=== PATIENT | female | born 1975 | race Caucasian/White ===

== ENCOUNTER 2025-05-17 07:39 | Outpatient (OUT) | payer BC, SELFPAY ==
--- OUTSIDE RECORDS SUMMARY | 2025-05-17 07:44 | XMS_ITS | Clinical Summary ---
Author Organization [facility] Address [address], [address] [place] [address] Care Team Providers Care Aco Coordinator Name Role Phone SinaAnayeliHeather Henrique MODEL MAKER APPRENTICE - STRING CUTTER Primary Care Pro vider Allergies Active AllergyReactionsCriticalityNoted DateCommentsBee BdvctBjaizfx75/19/2016 Numbness, palpitations, confusion Methotrexate And TrimetrexateOther (See Comments)06/20/2016 MENTAL CONFUSION Medications MedicationSigDispense QuantityRefillsLast FilledStart DateEnd DateStatus Multiple Vitamins-Minerals (MULTIVITAMIN ADULT PO) Take by mouth dailyActive fluticasone (FLONASE) 50 MCG/ACT nasal spray 2 sprays by Nasal route daily as needed for RhinitisActive gabapentin (NEURONTIN) 300 MG capsule Take 300 mg by mouth dailyActive amLODIPine (NORVASC) 2.5 MG tablet Take 2.5 mg by mouth dailyActive metoprolol succinate (TOPROL XL) 25 MG extended release tablet Take 25 mg by mouth 2 times dailyActive simvastatin (ZOCOR) 40 MG tablet Take 40 mg by mouth dailyActive omeprazole (PRILOSEC) 20 MG delayed release capsule Take 20 mg by mouth DailyActive metFORMIN (GLUCOPHAGE) 1000 MG tablet Take 1,000 mg by mouth 2 times daily (with meals)Active FLUoxetine HCl (PROZAC PO) Take 1 tablet by mouth dailyActive albuterol sulfate HFA 108 (90 BASE) MCG/ACT inhaler Inhale 2 puffs into the lungs every 6 hours as needed for WheezingActive Dulaglutide (TRULICITY) 0.75 MG/0.5ML SOPN Inject 0.5 mLs into the skin once a week SundayActive nabumetone (RELAFEN) 750 MG tablet Take 750 mg by mouth 2 times dailyActive EPINEPHrine HCl, Anaphylaxis, (EPIPEN 2-TOBI IM) Inject into the muscleActive acetaminophen (TYLENOL) 325 MG tablet Take 2 tablets by mouth every 4 hours as needed for Pain 120 tablet Active rivaroxaban (XARELTO) 10 MG TABS tablet Take 1 tablet by mouth daily 12 tablet 02/28/2017Active topiramate (TOPIRAGEN) 50 MG tablet Take 50 mg by mouth dailyActive lisinopril (PRINIVIL;ZESTRIL) 5 MG tablet Take 5 mg by mouth dailyActive alogliptin (NESINA) 25 MG TABS tablet Take 25 mg by mouth dailyActive adalimumab (HUMIRA) 40 MG/0.8ML injection Inject 40 mg into the skin every 14 daysActive metoprolol tartrate (LOPRESSOR) 25 MG tablet Take 25 mg by mouth dailyActive SUMAtriptan (IMITREX) 100 MG tablet Take 100 mg by mouth every 2 hours as needed for MigraineActive Active Problems ProblemNoted DateDiagnosed DateChange in bowel ixejrwtm43/01/2019Constipation 09/07/2018Morbid hfjtdfj4502/28/2017Status post right partial knee replacement 02/27/20171898Ghprrqys35/01/2013 Overview (02/27/2017): States that 2013 had a possible seizure, she states she had a full work up and it was not felt to be a seizure, she was never placed on halfway medications Rheumatoid arthritisNeuropathyHypertensionFibromyalgiaDiabetes mellitus DepressionChronic back painAsthma Immunizations ImmunizationAdministration DatesNext DuePneumococcal, PCV-13, PREVNAR 13, (age 6w+), IM, 0.5mL03/02/2017 Social History Tobacco UseTypesPacks/DayYears UsedDateSmoking Tobacco: Some DaysCigarettes0.325 Smokeless Tobacco: Never Comments:pt states she smoke s a few cigarettes couple times a week Alcohol UseStandard Drinks/WeekCommentsYes0 (1 standard drink = 0.6 oz pure alcohol)OCCCommentsNoSex and Gender InformationValueDate RecordedSex Assigned at BirthNot on fileLegal HpjZrybld16/10/2013 4:44 PM ESTGender Identity Not on fileSexual OrientationNot on file Last Filed Vital Signs Vital SignReadingTime TakenCommentsBlood Jxyntsdt74/69009/26/2018 12:30 PM EDT Wexei451209/26/2018 12:30 PM EDPRdfgosoywin25.4 ??C (97.5 ??F)09/26/2018 10:30 AM EDTRespiratory Yelv053009/26/2018 12:30 PM EDTOxygen Njvlgjtucs31%09/26/2018 12:24 PM EDTInhaled Oxygen Concentration--Vgdqft194.6 kg (235 lb)09/26/2018 10:30 AM CWOOesugh874.3 cm (5' 9 )09/26/2018 10:30 AM EDTBody Mass Index34.7009/26/2018 10:30 AM EDT Plan of Treatment Not on file Medical Devices ImplantedTypeAreaManufacturerDevice IdentifierShelf Expiration DateModel / Serial / LotCement Palacos R + G Sing Dose 40gr Implanted:Qty: 1 on 02/27/2017 [facility]ementRight: KneeZIMMER INC-PMM108/08/[id number] / / [id number] Knee Patella All Poly Persona Implanted:Qty: 1 on 02/27/2017 [facility]: [employer]-PMM12/07/[id number] / / [id number] Knee Fem Comp Cmntd Sz3 Rt Implanted:Qty: 1 on 02/27/2017 by [facility]: [employer]-[id number] / / [id number] Insurance * Guarantor: Dinh Paris TypeRelation to PatientDate of BirthPhoneBilling AddressPersonal/AmnyeeVlzr74/10/1976 [address] [place] [phone] Advance Directives * Full Code (Latest Code Status on File) Date ActivatedDate InactivatedComments02/27/2017 10:48 AM03/03/2017 7:41 PM Care Teams Team MemberRelationshipSpecialtyStart DateEnd Date Heather Andino, ЕЛЕНА - STRING CUTTER [address] [facility] [place] [address] PCP - GeneralNurse Aetxkikdrihy52/19/20
--- OUTSIDE RECORDS SUMMARY | 2025-05-17 07:44 | XMS_ITS | Encounter Summary ---
Author Organization [facility] Address [address] [place] [id number] Care Team Providers Care Bank Appraiser Name Role Phone Kavita Enriquez MD Primary Care Provider [phone] Source Comments In the event this information is protected by the Federal Confidentiality of Alcohol and Drug AbusePatient Records regulations: The Federal rules restrict any use of the information to criminally investigate or prosecute any alcohol or drug abuse patient.[facility] Reason for Visit * ReasonOnset DateCommentsRefill Mdzkydv1904/11/2025 Encounter Details DateTypeDepartmentCare Team (Latest Contact Info)Tjthffoukzs13/03/2025Refill Rheumatology [address] [place], [place] [id number] [place] [address] [place], [place] [phone] Refill Request Social History Tobacco UseTypesPacks/DayYears UsedDateSmoking Tobacco: Light SmokerCigarettes1 25Started: 12/08/1988; Last attempted to quit: 12/08/2013Smokeless Tobacco: Never Comments:use vape Alcohol UseStandard Drinks/WeekCommentsYes0 (1 standard drink = 0.6 oz pure alcohol)socialPHQ-2AnswerDate RecordedPHQ-2 mstwp6855Area Deprivation IndexAnswerDate RecordedNational Score (1-100), lower number is lower risk79 12/02/2022State Score (1-10), lower number is lower fuzj776ata from: https://www.neighborhoodatlas.[facility]/. Last address used for sai[address]gwdt[address] [address]/02/2022CommentsNoSex and Gender InformationValueDate RecordedSex Assigned at TsxmoKaxpru31/01/2021 1:42 PM EDT Legal MzgZxrzns51/10/2014 5:25 PM ESTGender AfbhiwdtRsdoae35/01/2021 1:42 PM EDT Sexual ZwrgehbdojwQqiriexl83/01/2021 1:42 PM EDTdocumented as of this encounter Functional Status * Are you deaf or do you have serious difficulty hearing?AnswerDate of DfqdekactwPbxawgVl71/04/2015 4:39 PM Padma Anderson LPN * Are you blind or do you have serious difficulty seeing, even when wearing glasses?AnswerDate of PlyfpecfauZnfkzsWq10/04/2015 4:39 PM Padma Anderson LPN * Do you have serious difficulty walking or climbing stairs?AnswerDate of MuhezsskkhDikxbiXep25/04/2015 4:39 PM Padma Anderson LPN * Do you have difficulty dressing or bathing?AnswerDate of AssessmentAuthorNo 09/10/2014 4:39 PM Padma Anderson LPN * Because of a physical, mental, or emotional condition, do you have difficulty doing errands alone such as visiting a doctor's office or shopping?AnswerDate of PmgonjwnjcMhrnfbSvw06/04/2015 4:39 PM Padma Anderson LPN documented as of this encounter Mental Status * Because of a physical, mental, or emotional condition, do you have serious difficulty concentrating, remembering, or making decisions?AnswerEntry Date SmmxduQy53/04/2015 4:39 PM Padma Anderson LPN documented in this encounter Miscellaneous Notes * Telephone Encounter - Lita Chicas LPN - 05/12/2025 2:38 PM EST Faxed confirmation and new order for [facility] sent to scanning . * Telephone Encounter - Lita Chicas LPN - 04/11/2025 11:46 AM EDT Received refill request via fax from [employer] - [facility] . Completed form and placed on desk for Dr. Ennis review and signature. Please fax to [employer] at [phone]. documented in this encounter Plan of Treatment Not on file documented as of this encounter Visit Diagnoses Not on filedocumented in this encounter Care Teams Team MemberRelationshipSpecialtyStart DateEnd Kavita Enriquez MD [address] [place] [id number] PCP - GeneralFamily Nawfvzlo44/23/24documented as of this encounter
--- OUTSIDE RECORDS SUMMARY | 2025-05-17 07:44 | XMS_ITS | Clinical Summary ---
Author Organization [facility] Address [address] [place], [place] [address] Care Team Providers Care Research And Development Researcher Name Role Phone Kavita Enriquez MD Primary Care Provider [phone] Allergies Active AllergyReactionsCriticalityNoted DateCommentsBee Venom Protein (Honey Bee)Cppshpl8406/27/20161720ChlgtmymWwmunihujpt65/06/2022 Given in ambulance: systolic BP dropped to 70 MethotrexateMental Status Potwua0702/17/2015 Fogginess,forgetful GabapentinOther: See Gzmnjynf92/12/2016 Wt gain Venom-Honey VycWzbniqw76/19/2016 Numbness, palpitations, confusion Medications MedicationSigDispense QuantityRefillsLast FilledStart DateEnd DateStatus Cholecalciferol, Vitamin D3, 1,000 unit cap Take 1 capsule by mouth once daily. 30 capsule ctive metFORMIN (GLUCOPHAGE) 1,000 mg tablet Take 1,000 mg by mouth twice daily with meals.Active DOCUSATE CALCIUM (STOOL SOFTENER ORAL) Take by mouth once daily.Active albuterol HFA (PROVENTIL HFA, VENTOLIN HFA) 90 mcg/actuation inhaler Inhale 2 Puffs as instructed every 6 hours as needed.Active EPINEPHrine (EPIPEN) 0.3 mg/0.3 mL auto-injector Inject 0.3 mg intramuscularly as needed.Active fluticasone (FLONASE) 50 mcg/actuation nasal spray Use 1 [place] in each nostril once daily.Active ergocalciferol, vitamin D2, (VITAMIN D) 50,000 unit capsule Indications:Vitamin D deficiencyTake 1 capsule by mouth once each week. 16 capsule 10/10/2018Active cetirizine (ZYRTEC) 10 mg tablet Take 10 mg by mouth.05/06/2020Active FLUoxetine (PROZAC) 20 mg capsule Take 20 mg by mouth once daily.2Active OZEMPIC 0.25 mg or 0.5 mg (2 mg/3 mL) pen INJECT 0.5MG'S UNDER THE SKIN ONCE TVTJAA9405/31/2024ctive OZEMPIC 1 mg/dose (4 mg/3 mL) pen INJECT 1 MG (0.75 ML) SUBCUTANEOUSLY EVERY WEEK FOR 84 DAYS06/30/2024ctive rosuvastatin (CRESTOR) 10 mg tablet Take 10 mg by mouth once daily.Active lidocaine (LIDODERM) 5 % Apply 1 Patch as directed every 24 hours.3Active leflunomide (ARAVA) 20 mg tablet Indications:Seropositive rheumatoid arthritis (HCC),Medication monitoring encounterTake 1 tablet by mouth once daily. Hold if you have infection or fevers 100.4 F or higher. May resume once infection resolved. 30 tablet 5Active abatacept (ORENCIA) 125 mg/mL injection Indications:Seropositive rheumatoid arthritis (HCC)Inject 1 mL subcutaneously one time a week. Hold if you have infection or fevers 100.4 F or higher.May resume once infection resolved. 12 mL 5Active naproxen (NAPROSYN) 500 mg tablet TAKE 1 TABLET BY MOUTH TWO TIMES A DAY NEEDED. DO NOT TAKE ANTI-INFLAMMATORY ARTHRITIS MEDICATION (EG. NSAIDS SUCH ALEVE, ADVIL, IBUPROFEN, MOTRIN ETC) WHILE ON NAPROXEN. 180 tablet 5Active naproxen (NAPROSYN) 500 mg tablet TAKE 1 TABLET BY MOUTH TWO TIMES A DAY NEEDED. DO NOT TAKE ANTI-INFLAMMATORY ARTHRITIS MEDICATION (EG. NSAIDS SUCH ALEVE, ADVIL, IBUPROFEN, MOTRIN ETC) WHILE ON NAPROXEN. 180 tablet Discontinued Active Problems ProblemNoted DateDiagnosed DatePatellofemoral pain syndrome of left knee 10/02/2018Degeneration of lumbar intervertebral disc07/15/2015Seropositive rheumatoid cftujwqjh48/20/9627Lxfgjhefmoup24/20/2015Type II diabetes mellitus 07/29/2014 Encounters DateTypeDepartmentCare YztjWqsravzpcsi51/22/2025Refill Rheumatology [id number] [place] [address], [place] [address] Heather Ennis MD Refill Udnrrgf8504/13/2025Refill Rheumatology [address] [place] [address], [place] [address] Heather Ennis MD Refill Azdjlck1004/11/2025Refill Rheumatology [address] [place] [address], [place] [address] Heather Ennis MD Refill Vorxqvs4404/03/2025Refill Rheumatology [address] [place] [address], [place] [address] Heather Ennis MD Refill Zoncfvl7003/31/20251528Uxlxug30/28/2025Refill Rheumatology [address] [place] [address], [place] [address] Heather Ennis MD Refill Tcnbmyw4802/19/2025Refill Rheumatology [address] [place] [address], [place] [address] Heather Ennis MD Refill Requestfrom Last 3 Months Immunizations ImmunizationAdministration DatesNext Dueinfluenza (IIV4) vaccine, age 6 mo - 64 yr, quadrivalent (AFLURIA, FLULAVAL, FLUZONE)05/14/2019,03/28/2017influenza (IIV4) vaccine, age 6 mo - 64 yr, quadrivalent, PF (AFLURIA, FLUARIX, FLULAVAL, FLUZONE)07/20/2021,04/04/2018 Family History Medical HistoryRelationCommentsHeartBrotherRelationStatusCommentsBrotherDeceased Social History Tobacco UseTypesPacks/DayYears UsedDateSmoking Tobacco: Light SmokerCigarettes1 25Started: 12/08/1988; Last attempted to quit: 12/08/2013Smokeless Tobacco: Never Tobacco Cessation:Ready to Q uit: Not Asked; Counseling Given: Not Answered Comments:use vape Alcohol UseStandard Drinks/WeekCommentsYes0 (1 standard drink = 0.6 oz pure alcohol)socialPHQ-2AnswerDate RecordedPHQ-2 pskkt4025Area Deprivation IndexAnswerDate RecordedNational Score (1-100), lower number is lower risk79 12/02/2022State Score (1-10), lower number is lower duys139ata from: https://www.neighborhoodatlas.medicine.[facility].edu/. Last address used for utfmxtskisj[address] [address]/02/[address]22CommentsNoSex and Gender InformationValueDate RecordedSex Assigned at DeznuWjwcdu82/01/2021 1:42 PM EDT Legal OhdOgoako61/10/2014 5:25 PM ESTGender SzjmssvtTecckg22/01/2021 1:42 PM EDT Sexual RlvhqswlrewJoswiikx72/01/2021 1:42 PM EDT Last Filed Vital Signs Vital SignReadingTime TakenCommentsBlood Futrmyki413/70010/25/2024 11:38 AM EDT Emgof880410/25/2024 11:38 AM LRLJxqorlezbsc21.7 ??C (98.1 ??F)05/01/2024 1:02 PM EDTRespiratory Pgmd648707/22/2024 9:14 AM ESTOxygen Ajsymlhvpz04%07/22/2024 9:14 AM ESTInhaled Oxygen Concentration--Aqafsc387.5 kg (225 lb 15.5 oz)10/25/2024 11:38 AM XKCQqrkzy281.7 cm (5' 8 )07/22/2024 9:14 AM ESTBody Mass Index34.36 07/22/2024 9:14 AM EST Plan of Treatment Health MaintenanceDue DateLast DoneCommentsCovid-19 Vaccine (#1)12/18/1979 Diabetic Foot Exam1984Dilated Retinal Exam1984Urine Albumin:Creatinine Ratio1984Cervical Cancer Awoqtlxvg38/10/1986Annual PCP Team Chronic Disease Visit1992Anxiety Fdacunelm95/10/1993Depression Odjqqtgfu37/10/1993HIV Olfqodzer56/10/1993LDL Dddainmazuu28/10/1993Shingrix Vaccine (1 of 2)1993CT Kwbnfgrnfvyd07/10/2020Cologuard (FIT-DNA)12/18/2019 Nohknaaeeoj79/10/2020Colorectal Cancer Sdkyckhih11/10/2020Fecal Occult Blood 12/18/20190924Nynwvikgubshs28/10/2020Mammogram Hhavemuzj48/09/2020, 09/09/2020, 09/02/2019, Additional history existsLung Cancer Mpodykjqa95/10/2025 11/08/2022, 11/08/2022neumococcal Vaccine: 50+ (4 of 4 - PCV20 or PCV21) 5004/04/2018, 03/02/2017, 03/07/2013, Additional history existsInfluenza Vaccine (#1)/05/2022, 05/14/2019, 05/14/2019, Additional history existsDTaP,Tdap,Td Vaccine (2 - Td or Tdap)6007/24/20153974McV9F20/22/2026 03/31/2025, 11/18/2022, 06/20/2022, Additional history existsHepatitis C BzenctfbdHlixlgfuu95/13/2025, 08/08/2022, 05/14/2019, Additional history exists Procedures Procedure NamePriorityDate/TimeAssociated DiagnosisCommentsHEMOGLOBIN Z0WTvpaflo 03/31/2025 1:28 PM EDT Type 2 diabetes mellitus with hyperglycemia, unspecified whether snf insulin use (HCC) SEDIMENTATION VCJUIbijeis08/22/2025 1:28 PM EDT Seropositive rheumatoid arthritis (HCC) Medication monitoring encounter CREATININE RMFMhmiiss11/22/2025 1:28 PM EDT Seropositive rheumatoid arthritis (HCC) Medication monitoring encounter C-REACTIVE PROTEIN (CRP)Gpogokh5503/31/2025 1:28 PM EDT Seropositive rheumatoid arthritis (HCC) Medication monitoring encounter CBC + XWULCxvnign99/22/2025 1:28 PM EDT Seropositive rheumatoid arthritis (HCC) Medication monitoring encounter ALBUMIN WZGPpnzpam69/ 1:28 PM EDT Seropositive rheumatoid arthritis (HCC) Medication monitoring encounter ALT/EYSESmixtdy84/22/2025 1:28 PM EDT Seropositive rheumatoid arthritis (HCC) Medication monitoring encounter AST/SGOT MHBHhlgohf40/22/2025 1:28 PM EDT Seropositive rheumatoid arthritis (HCC) Medication monitoring encounter HEPATITIS C ANTIBODY IA WITH MCEYVZGOYVREUgrqvtq99/13/2025 10:37 AM EST Seropositive rheumatoid arthritis (HCC) Pain in joint, multiple sites from Last 3 Months or Most Recently Relevant to Health Maintenance Results * SEDIMENTATION RATE, WESTERGREN (03/31/2025 1:28 PM EDT)ComponentValueRef Range Test MethodAnalysis TimePerformed AtPathologist SignatureSed Rate, Westergren 100 - 20 mm/hr03/31/2025 9:33 PM [facility] LABSpecimen (Source)Anatomical Location / LateralityCollection Method / VolumeCollection TimeReceived TimeBloodBLOOD SPECIMEN / UnknownVenipuncture / Jolfodx6003/31/2025 1:28 PM EDT03/31/2025 1:29 PM EDT Narrative Authorizing ProviderResult TypeResult StatusHeather Ennis MDLABORATORYFinal ResultPerforming OrganizationAddressCity/State/ZIP CodePhone Number [facility] [address] [place] [address], * (ABNORMAL) HEMOGLOBIN A1C (03/31/2025 1:28 PM EDT)ComponentValueRef RangeTest MethodAnalysis TimePerformed AtPathologist SignatureHemoglobin A1C5.7(H)4.3 - 5.6 %04/01/2025 8:28 AM [facility] LABComment:[place] Diabetes Association guidelines indicate that patients with HgbA1c in the range 5.7-6.4% are at increased risk for development of diabetes, and intervention by lifestyle modification may be beneficial. HgbA1c greater or equal to 6.5% is considered diagnostic of diabetes.Estimated Average Glucose 117mg/dL04/01/2025 8:28 AM [facility] LABComment:eAG: (Estimated average glucose) is a calculated value from HgbA1c and is customer service representative of the average blood glucose level in the last 2-3 month period.Specimen (Source)Anatomical Location / LateralityCollection Method / VolumeCollection TimeReceived TimeBloodBLOOD SPECIMEN / UnknownVenipuncture / Sodxnmd6703/31/2025 1:28 PM EDT03/31/2025 1:29 PM EDT Narrative Authorizing ProviderResult TypeResult StatusKavita Enriquez MDLABORATORYFinal ResultPerforming OrganizationAddressCity/State/ZIP CodePhone Number [facility] [address] [facility] [address] [place] [address], [place] * CREATININE BLD (03/31/2025 1:28 PM EDT)ComponentValueRef RangeTest Method Analysis TimePerformed AtPathologist SignatureCreatinine0.770.58 - 0.96 mg/dL 03/31/2025 2:51 PM [facility] LABORATORYEstimated Glomerular Filtration Rate94>=60 mL/min/1.73m 03/31/2025 2:51 PM [facility] LABORATORYComment:Estimated Glomerular Filtration Rate (eGFR) is calculated using the 2020 CKD-EPI creatinine equation. This equation utilizes serum creatinine, sex, and age as parameters. The creatinine assay has traceable calibration to isotope dilution-mass spectrometry. Refer to KDIGO guidelines for clinical interpretation. In patients with unstable renal function, e.g. those with acute kidney injury, the eGFRmay not accurately reflect actual GFR.Specimen (Source)Anatomical Location / LateralityCollection Method / VolumeCollection TimeReceived TimeBloodBLOOD SPECIMEN / UnknownVenipuncture / Ybkvtjn8403/31/2025 1:28 PM EDT03/31/2025 1:29 PM EDT Narrative Authorizing ProviderResult TypeResult StatusHeather Ennis MDLABORATORYFinal ResultPerforming OrganizationAddressCity/State/ZIP CodePhone Number [facility] [address] [place] [address], [place] * COMPLETE BLOOD COUNT AND DIFFERENTIAL (03/31/2025 1:28 PM EDT)ComponentValue Ref RangeTest MethodAnalysis TimePerformed AtPathologist SignatureWBC5.623.70 - 11.00 k/uL03/31/2025 1:48 PM [facility] LABORATORYRBC4.893.90 - 5.20 m/uL03/31/2025 1:48 PM [facility] GKCDOAOEGUGcjqxbxcln88.511.5 - 15.5 g/dL03/31/2025 1:48 PM [facility] XZOBRZMJPHQxdcpchknk98.336.0 - 46.0 % 03/31/2025 1:48 PM [facility] SDNBYIWGNJGRU91.580.0 - 100.0 fL03/31/2025 1:48 PM [facility] VJEMVYAVEXNUQ16.626.0 - 34.0 pg03/31/2025 1:48 PM [facility] MCXXJSDHRXYYBI80.930.5 - 36.0 g/dL03/31/2025 1:48 PM [facility] LABORATORYRDW-CV13.511.5 - 15.0 %03/31/2025 1:48 PM [facility] LABORATORYPlatelet Brtcz216314 - 400 k/uL03/31/2025 1:48 PM [facility] LABORATORYMPV9.69.0 - 12.7 fL03/31/2025 1:48 PM [facility] Neutrophils %58.6%03/31/2025 1:48 PM [facility] LABORATORYAbs Neut3.30 1.45 - 7.50 k/03/31/2025 1:48 PM [facility] LABORATORYLymphocytes % 28.1%03/31/2025 1:48 PM [facility] LABORATORYAbs Lymph1.581.00 - 4.00 k/uL03/31/2025 1:48 PM [facility] LABORATORYMonocytes %9.8%03/31/2025 1:48 PM [facility] LABORATORYAbs Mono0.55<0.87 k/uL03/31/2025 1:48 PM [facility] LABORATORYEosinophils %2.0%03/31/2025 1:48 PM [facility]ORATORYAbs Eosin0.11<0.46 k/uL03/31/2025 1:48 PM [facility] LABORATORYBasophils %1.1%03/31/2025 1:48 PM [facility]ORATORYAbs Baso0.06<0.11 k/uL03/31/2025 1:48 PM [facility] LABORATORYImmature Granulocytes %0.4%03/31/2025 1:48 PM [facility]ORATORYAbs Immature Gran<0.03<0.10 k/uL03/31/2025 1:48 PM [facility] LABORATORYNRBC0.0/100 WBC03/31/2025 1:48 PM [facility]ORATORYAbsolute nRBC<0.01<0.01 k/uL 03/31/2025 1:48 PM [facility]ORATORYDiff AlmeWzcs45/22/2025 1:48 PM [facility] LABORATORYSpecimen (Source)Anatomical Location / Laterality Collection Method / VolumeCollection TimeReceived TimeBloodBLOOD SPECIMEN / UnknownVenipuncture / Szjfjeo8803/31/2025 1:28 PM EDT03/31/2025 1:29 PM EDT Narrative Authorizing ProviderResult TypeResult StatusHeather Ennis MDLABORATORYFinal ResultPerforming OrganizationAddressty/State/ZIP CodePhone Number [facility] [address] [facility] [place] [address], [place] * C-REACTIVE PROTEIN (03/31/2025 1:28 PM EDT)ComponentValueRef RangeTest Method Analysis TimePerformed AtPathologist SignatureCRP<0.3<0.9 mg/dL03/31/2025 2:51 PM [facility] LABORATORYSpecimen (Source)Anatomical Location / LateralityCollection Method / VolumeCollection TimeReceived TimeBloodBLOOD SPECIMEN / UnknownVenipuncture / Mjyymuy0803/31/2025 1:28 PM EDT03/31/2025 1:29 PM EDT Narrative Authorizing ProviderResult TypeResult StatusHeather Ennis MDLABORATORYFinal ResultPerforming OrganizationAddressty/State/ZIP CodePhone Number [facility] [address] [facility] [place] [address], [place] * ALBUMIN (03/31/2025 1:28 PM EDT)ComponentValueRef RangeTest MethodAnalysis TimePerformed AtPathologist SignatureAlbumin4.03.9 - 4.9 g/dL03/31/2025 2:51 PM [facility] LABORATORYSpecimen (Source)Anatomical Location / LateralityCollection Method / VolumeCollection TimeReceived TimeBloodBLOOD SPECIMEN / UnknownVenipuncture / Qyrslwf1603/31/2025 1:28 PM EDT03/31/2025 1:29 PM EDT Narrative Authorizing ProviderResult TypeResult StatusJudguillermo Ennis MDLABORATORYFinal ResultPerforming OrganizationAddressCity/State/ZIP CodePhone Number [facility] [address] [facility] [place] [address], [place] * ASPARTATE AMINOTRANSFERASE/SGOT (03/31/2025 1:28 PM EDT)ComponentValueRef RangeTest MethodAnalysis TimePerformed AtPathologist AzirsmiojRRC7011 - 35 U/L 03/31/2025 2:51 PM [facility] LABORATORYSpecimen (Source)Anatomical Location / LateralityCollection Method / VolumeCollection TimeReceived Time BloodBLOOD SPECIMEN / UnknownVenipuncture / Mcueujc2703/31/2025 1:28 PM EDT 03/31/2025 1:29 PM EDT Narrative Authorizing ProviderResult TypeResult StatusJudguillermo Ennis MDLABORATORYFinal ResultPerforming OrganizationAddressCity/State/ZIP CodePhone Number [facility] [address] [facility] [place] [address], [place] * ALANINE AMINOTRANSFERASE / SGPT (03/31/2025 1:28 PM EDT)ComponentValueRef RangeTest MethodAnalysis TimePerformed AtPathologist FvngdhcjhGXN525 - 38 U/L 03/31/2025 2:51 PM [facility] LABORATORYSpecimen (Source)Anatomical Location / LateralityCollection Method / VolumeCollection TimeReceived Time BloodBLOOD SPECIMEN / UnknownVenipuncture / Vmoojxc0103/31/2025 1:28 PM EDT 03/31/2025 1:29 PM EDT Narrative Authorizing ProviderResult TypeResult StatusJudguillermo Harris Monroechauncey MDLABORATORYFinal ResultPerforming OrganizationAddressCity/State/ZIP CodePhone Number [facility] [address] [facility] [place] [address], [place] * HEPATITIS C ANTIBODY IA WITH CONFIRMATION (07/22/2024 10:37 AM EST)Component ValueRef RangeTest MethodAnalysis TimePerformed AtPathologist SignatureHep C Antibody IVUtrrvesdJawfannp37/13/2025 5:[address] [facility] LABComment:The result suggests no evidence of active infection with Hepatitis C virus. Should recent infectionbe suspected, repeat testing may be considered 4-6 weeks after this draw.Specimen (Source)Anatomical Location / Laterality Collection Method / VolumeCollection TimeReceived TimeBloodBLOOD SPECIMEN / UnknownVenipuncture / Tbdoohl6807/22/2024 10:37 AM EST07/22/2024 10:37 AM EST Narrative Authorizing ProviderResult TypeResult StatusHeather Ennis MDLABORATORYFinal ResultPerforming OrganizationAddressCity/State/ZIP CodePhone Number [facility] [address] [phone] from Last 3 Months or Most Recently Relevant to Health Maintenance Insurance Care Teams Team MemberRelationshipSpecialtyStart DateEnd Kavita Enriquez MD [address] [place] [address] PCP - GeneralFamily Ataqksla84/23/24
--- OUTSIDE RECORDS SUMMARY | 2025-05-17 07:44 | XMS_ITS | Clinical Summary ---
Author Organization [facility] tem Address [id number] [place] [address] Care Team Providers Care Senior Center Director Name Role Phone SinaHeather becerra PIPE FITTER-BOLT SAWYER Primary Care Provi janet Allergies Active AllergyReactionsCriticalityNoted DateCommentsBee Venom Protein (Honey Bee)Fmcmfzo7206/27/2016 Numbness, palpitations, confusion Numbness, palpitations, confusion Chemo Diluent 1 (Pf)Other (See Comments)06/20/2016 MENTAL CONFUSION Urarlekhpj20/30/2018 Patient states she gains weight, [facility] lists as allergy MethotrexateConfusion,Other (See Comments)12/11/2015 Fogginess,forgetful MENTAL CONFUSION Medications * This document contains information received from the source organization and may not represent a complete record from that organization. MedicationSigDispense QuantityRefillsLast FilledStart DateEnd DateStatus omeprazole (PriLOSEC) 20 mg capsule Indications:Gastroesophageal reflux disease with esophagitis without hemorrhage Take 1 capsule (20 mg total) by mouth every morning before breakfast. 90 capsule ctive simvastatin (ZOCOR) 40 mg tablet Indications:Type 2 diabetes mellitus without complication, without long-term current use of insulin ([facility])Take 1 tablet (40 mg total) by mouth nightly. 90 tablet ctive amLODIPine (NORVASC) 2.5 mg tablet Indications:Hypertension, unspecified typeTAKE 1 TABLET BY MOUTH IN THE MORNING 90 tablet ctive Additional Information Patient taking differently: 2.5 mg oral Daily, Ver[facility], Reported on 11/16/2022 clobetasoL (TEMOVATE) 0.05 % ointment Indications:Irritant contact dermatitis due to other agentsApply 1 Application topically in the morning and 1 Application before bedtime. 30 g ctive metFORMIN (GLUCOPHAGE) 1000 mg tablet Indications:Type 2 diabetes mellitus with complication ([facility]Take 1 tablet (1,000 mg total) by mouth in the morning and 1 tablet (1,000 mg total) in the evening. Take with meals. 180 tablet ctive lidocaine (LIDODERM) 5 % Place 1 patch on the skin daily. Remove & Discard patch within 12 hours or as directed by 30 patch 11/08/2022ctive cyclobenzaprine (FLEXERIL) 10 mg tablet Take 1 tablet (10 mg total) by mouth 2 (two) times a day as needed for muscle spasms. [facility] Pt did overdose on this medication ctive erenumab-aooe (AIMOVIG AUTOINJECTOR) 70 mg/mL auto-injector Indications:Migraine with aura and with status migrainosus, not intractable Inject 70 mg under the skin every 28 days. 2 mL 11/28/2022ctive lisinopriL (PRINIVIL,ZESTRIL) 5 mg tablet Indications:Abnormal finding on echocardiogram,Hypertension, unspecified type Take 1 tablet by mouth once daily 90 tablet 01/03/2023ctive dulaglutide (TRULICITY) 1.5 mg/0.5 mL pen injector Indications:Type 2 diabetes mellitus without complication, without long-term current use of insulin ([facility]Inject 1.5 mg under the skin every 7 days. 6 mL ctive topiramate (TOPAMAX) 100 mg tablet Indications:Migraine with aura and with status migrainosus, not intractableTAKE 1 TABLET BY MOUTH IN THE MORNING AND 1 AT BEDTIME 180 tablet 06/08/2023ctive nabumetone (RELAFEN) 750 mg tablet Indications:Chronic cervical pain,Chronic midline low back pain with left-sided sciaticaTAKE 1 TABLET BY MOUTH EVERY 12 HOURS 180 tablet 06/08/2023ctive blood-glucose sensor (FREESTYLE JEOVANY 3 SENSOR) device Indications:Type 2 diabetes mellitus without complication, without long-term current use of insulin (CMS-H[facility])USE DIRECTED TO CHECK BLOOD SUGARS DAILY IN THE MORNING. CHANGE SENSOR TOPICALLY EVERY 14 DAYS. 5 each ctive Active Problems ProblemNoted DateDiagnosed DateChronic left shoulder pain11/28/2022Right hip pain11/28/2022Severe recurrent major depression with psychotic features 11/17/2022MI 36.0-36.9,adult10/06/2022Hormone pzaeayavy09/30/2023Healthcare qlqwsuuoltw21/31/2023Irritant contact dermatitis due to other bgajpv1608/09/2022 Gastroesophageal reflux disease with esophagitis without kuebnxydhs79/25/2022 Closed fracture of distal end of right znnntl3311/11/2021hronic midline low back pain with left-sided pzvvmtmo65/07/2021hronic cervical pain01/13/2021Facet arthropathy, sohounbc93/07/2021rotrusion of cervical intervertebral disc 01/13/2021cute non intractable tension-type /22/8617Pgghb68/22/2021 Vaginal odor03/02/2020Vaginal rsvsccm4203/02/20203920Desmrlqbzyz76/29/2020Syncopal ehxhphsi44/29/2020Vaginal yeast usmvtyuni65/14/2020Screening breast examination 08/28/2019Acute non-recurrent maxillary fitnxaiyi99/29/2020PND (post-nasal drip) 08/07/20191366Igijgoypumah95/13/0026Mwyrtbzttx03/13/2019Chronic back pain02/19/2019 Muczkj9902/19/20194358Bexofsmept69/13/2019Patellofemoral pain syndrome of left knee 10/02/2018Renal cyst, left09/08/2018Change in bowel cfsxkmue37/01/2019Chronic seasonal allergic rhinitis due to zakdti9404/04/2018Well woman exam with routine gynecological exam11/20/20174143Caasqknksbcg05/14/2018Anxiety in acute stress gbsfseev30/24/2018Migraine with aura and with status migrainosus, not aifhxfiajao89/08/2018OSA (obstructive sleep apnea)06/19/2017Chronic fatigue 06/19/2017Vitamin D dpuvptyoln73/11/2017Morbid lxwwkhm8502/28/2017Status post right partial knee /21/2017Abnormal findings on diagnostic imaging of heart and coronary rrqtigjpwrj53/09/2016Lumbar disc mqjylvbjr25/06/2016 Eajaxjwpfnyz00/20/2015Rheumatoid wfyyhwdyt87/20/2015Type II diabetes mellitus 07/29/20142344Tgwfeyoc78/01/2013 Overview (09/23/2021): Overview: States that 2012 had a possible seizure, she states she had a full work up and it was not felt to be a seizure, she was never placed on assisted medications States that 2012 had a possible seizure, she states she had a full work up and it was not felt to be a seizure, she was never placed on long term care pharmacist medications Resolved Problems ProblemNoted DateDiagnosed DateResolved DateDisc degeneration, gqpqcr4202/01/2021 07/20/20213678Glxyt02Other ziqsivg38ardnerella vaginalis tcvbgdtkb80ntibiotic-induced yeast infection URI (upper respiratory infection)2Chest pain Immunizations ImmunizationAdministration DatesNext DueInfluenza, Injectable, Quadrivalent 03/28/2017Influenza, Injectable, quadrivalent (PF)07/20/2021,04/04/2018 Influenza, Joxswwqqkiw12/30/2016,04/21/2015,04/11/2014,04/25/2013MMR08/03/2015 Pneumococcal Rosgjvwrl14/29/2013Pneumococcal Conjugate 13-Wlcjsv6303/02/2017 Pneumococcal Uhpmflbmcjmvtp85/26/1905Kblh57/15/2016 Family History Medical HistoryRelationNameCommentsEarly deathBrotherERICEpilepsyFatherBreast cancerMaternal GrandmotherThyroid IssuesMotherBreast cancerPaternal AuntRelation NameStatusCommentsBrotherERICDeceasedFatherDeceasedMaternal GrandmotherMother DeceasedPaternal Aunt Social History Tobacco UseTypesPacks/DayYears UsedDateSmoking Tobacco: Former Vaping/E-cigarettesQuit: 12/10/2013Smokeless Tobacco: Never Tobacco Cessation:Counseling Given: Not Answered Comments:Pt only vapes Alcohol UseStandard Drinks/WeekCommentsYes0 (1 standard drink = 0.6 oz pure alcohol)occasionallyPHQ-2AnswerDate RecordedTotal Ditwb5283Childcare AnswerDate GacbwvfgFampbgbekBomseqp23/03/2019EmploymentAnswerDate Recorded CrgnnrbzsvXrhejqm40/03/2019Hunger ScreeningAnswerDate RecordedWithin the past 12 months we worried whether our food would run out before we got money to buy more.Never True11/28/2022Within the past 12 months the food we bought just didn't last and we didn't have money to get more.Never True3Purpose - LifeAnswerDate RecordedPurpose and direction in ztzhLekdojd52/02/2021 CommentsNoSex and Gender InformationValueDate RecordedSex Assigned at BirthNot on fileLegal FfqSrxwim32/06/2015 11:45 AM EDTGender IdentityNot on fileSexual OrientationNot on file Last Filed Vital Signs Vital SignReadingTime TakenCommentsBlood Rtowvwtu561/7411/28/2022 2:57 PM EDT Mlqqk167011/28/2022 2:57 PM ZUOStbuenxscjv28.5 ??C (97.7 ??F)11/28/2022 2:57 PM EDTRespiratory Fzak655811/28/2022 2:57 PM EDTOxygen Ivtbixdngg15%11/28/2022 2:57 PM EDTInhaled Oxygen Concentration--Ermdty669.2 kg (232 lb)11/28/2022 2:57 PM OWNIyfjkl022.3 cm (5' 9.02 )11/28/2022 2:57 PM EDTBody Mass Index34.24011/28/2022 2:57 PM EDT Plan of Treatment Health MaintenanceDue DateLast DoneCommentsDiabetic Ophthalmology Exam1975 Statin Use: Mqxqyrgx58/10/1975Tobacco Blutylcif40/10/1987Diabetic Foot Exam 12/17/19929364Dwcpwetdh65/03/202203/09/2020, 09/02/2019, 04/28/2018, Additional history existsPap Smear/, 11/20/2017Depression Screening dult BMI Wxvgqlgqk76/Zoster (Shingles) Vaccine (1 of 2)2024Influenza Ifdklqe28/05/2022, 05/14/2019, 04/04/2018, Additional history existsDTaP,Tdap and Td Vaccines (2 - Td or Tdap) Medical Devices Not on file Procedures Procedure NamePriorityDate/TimeAssociated DiagnosisCommentsMAMM SCREENING BILATERAL W DYBAizfvrl26/03/2021 11:29 AM EST Encounter for screening mammogram for malignant neoplasm of breast PAP DESJWSicppiu55/19/2020 12:07 PM EST Well woman exam with routine gynecological exam from Last 3 Months or Most Recently Relevant to Health Maintenance Results * Mammography screening bilateral with CAD (09/09/2020 11:29 AM EST)Anatomical RegionLateralityModalityBreastBilateralMammographySpecimen (Source)Anatomical Location / LateralityCollection Method / VolumeCollection TimeReceived Time 09/09/2020 11:38 AM EST Narrative 09/09/2020 11:38 AM EST MAMM SCREENING BILATERAL W CAD WITH TOMOSYNTHESIS HISTORY: Screening. COMPARISON: 09/02/2019 and priors FINDINGS: There are scattered areas of fibroglandular density. ??Negative for malignancy. Computer-aided detection was used in the interpretation of this examination. IMPRESSION: BIRADS 1 - Negative. ??Normal interval follow-up in 12 months. OVERALL ASSESSMENT- NEGATIVE. A letter of notification will be sent to the patient regarding the results. Finalized by Ace Barreto MD on 09/09/2020 11:38 AM 1 b MAMM 1 YR Procedure Note Ace Barreto MD - 09/09/2020 MAMM SCREENING BILATERAL W CAD WITH TOMOSYNTHESIS HISTORY: Screening. COMPARISON: 09/02/2019 and priors FINDINGS: There are scattered areas of fibroglandular density. Negativefor malignancy. Computer-aided detection was used in the interpretation of thisexamination. IMPRESSION: BIRADS 1 - Negative. Normal interval follow-up in 12 months. OVERALL ASSESSMENT- NEGATIVE. A letter of notification will be sent to the patient regarding theresults. Finalized by Ace Barreto MD on 09/09/2020 11:38 AM 1 b MAMM 1 YR Authorizing ProviderResult TypeResult StatusJudguillermo Andino APRN-CNPIMG MAMMOGRAPHY ORDERABLESFinal Result * Pap Smear (08/28/2019 12:07 PM EST)Specimen (Source)Anatomical Location / LateralityCollection Method / VolumeCollection TimeReceived Time08/28/2019 12:07 PM EST08/29/2019 12:07 PM EST Narrative [facility] - 09/02/2019 1:57 PM EST [facility] ? [address] [place] [address] ? [place] [id number] ? Gynecologic Cytology Consultation ? Patient Name: GUILLE GUEVARA : 1975 (Age: 43) Gender: F Taken: 08/28/2019 Reported: 09/02/2019 Physician(s): Heather Andino CNP [phone]) Copy To: ?? [facility]. Rec. #:[id number] Acct: # [id number] Final Cytologic Interpretation ThinPrep Pap Test (Vaginal/Cervical): Satisfactory for evaluation. A transformation zone component was not noted. NEGATIVE FOR INTRAEPITHELIAL LESION OR MALIGNANCY. ?? jja/09/02/2019 Interpret[place] [id number], License number: [id number]. Electronically Signed Out By ?DEVENDRA Tinoco(ASCP) Date of Last Menstrual Period: ? (None Given) Other Clinical Conditions: Z01.419 Relay Adjuster exam wo/abn findings Source of Specimen ??ThinPrep Pap Test (Vaginal/Cervical) ? Thin Prep Pap (GROUND SYSTEMS ENGINEER) Fee Code(s): ?? G0145 The Pap test is a screening test with an inherent, but low, probability of error. The Pap test is primarily effective for the diagnosis and prevention of squamous cell carcinoma. Regular screening iscritical for prevention. ThinPrep liquid-based slides, which meet the Certified Medicine Aide criteria for automated screening, have been screened by the [employer] System (as of 03/26/07) along with an additional manual rescreening by a cold saw operator and, if indicated, by a pathologist. Authorizing ProviderResult TypeResult StatusHeather CHESTER PATHOLOGY/CYTOLOGY ORDERABLESFinal ResultPerforming OrganizationAddress City/State/ZIP CodePhone Number COPATH from Last 3 Months or Most Recently Relevant to Health Maintenance Insurance Advance Directives * Full Code (Latest Code Status on File) Date ActivatedDate InactivatedComments11/17/2022 10:29 AM11/22/2022 1:42 PM Care Teams Team MemberRelationshipSpecialtyStart DateEnd Date Heather Andino APRN-CNP [address] [facility], [place] [address] PCP - GeneralFamily Nojolhml42/11/17
--- OUTSIDE RECORDS SUMMARY | 2025-05-17 07:44 | XMS_ITS | Patient Health Record ---
Author Organization [facility] [place] Address [address] [place] [address] Support Name Relationship Address Phone Guille Paris Guarantor Unknown [phone] Reason For Referral No Information Medications Medication SIG (Take, Route, Frequency, Duration) Notes Start Date End Date Status Methotrexate 2.5 MG 8 Oral weekly 06/03/2014ctiveMotrin 800 MGOral two times daily ActiveEpiPen 0.3 MG/0.3ML (1:1000)Intramuscular as fhuqqh5407/10/1899ActiveMulti-DayOral daily ActivemetFORMIN HCl ER 500 MGOral two times daily Active Gabapentin 300 MG1 (one) Capsule Oral three times daily06/03/2014ctiveMeloxicam 15 MG1 (one) Tablet Oral daily06/16/2014ctiveFolic Acid 1 MG1 (one) Tablet Oral daily04/18/2014ctive Immunizations Vaccine Route Administration Date Status Comme nts Flu, Fluzone (62344) 3 yrs+, multi-dose vial (4598-3482) Undefined 04/09/2014 Pending Plan Of Treatment No Information Insurance Providers Payer Name Payer Address Payer Phone Subscriber Number Group Number Insured Name Patient Relationship to Insured Coverage Start Date Coverage End Date [employer] [id number], EranSelf - patient is the insured Medical (General) History Surgical History Surgery Date(Month/Year) Carpal Tunnel Repair Foot surgery Comments: bilateral benign tumorsCesarean Section - 2
--- OUTSIDE RECORDS SUMMARY | 2025-05-17 07:44 | XMS_ITS | Clinical Summary ---
Author Organization [facility] Address [address] [place] [address] Care Team Providers Care Fish Warden Name Role Phone Unavailable Primary Care Provider Unavailabl e Social History Tobacco UseTypesPacks/DayYears UsedDateSmoking Tobacco: Never Assessed CommentsUnknownSex and Gender InformationValueDate RecordedSex Assigned at Not on fileLegal AssPvfnco37/15/2023 8:28 PM EDTGender IdentityNot on fileSexual OrientationNot on file Last Filed Vital Signs Vital SignReadingTime TakenCommentsBlood Pressure--Pulse--Temperature-- Respiratory Rate--Oxygen Saturation--Inhaled Oxygen Concentration--Byxfkr345 kg (250 lb)08/30/2018 12:00 PM NDHYpdlhp175.3 cm (5' 9 )08/30/2018 12:00 PM ESTBody Mass Index36.9208/30/2018 12:00 PM EST Plan of Treatment Not on file
[2025-05-17 08:15] LABS: Cholesterol 257 mg/dL (<=200); HDL Cholesterol 50 mg/dL (40-60); Triglycerides 138 mg/dL (<=150); VLDL CHOLESTEROL 27.6 mg/dL
== END 2025-05-17 07:40 | disposition home or self-care (01) ==
PROVIDERS: PCP Family Medicine; Visit Provider Family Medicine
DX: Z00.00 Encounter for general adult medical examination without abnormal findings (principal)
CPT/HCPCS: 36415; 80061

== ENCOUNTER 2025-05-29 14:35 | Outpatient (OUT) | payer BC, SELFPAY ==
--- NOTE | 2025-05-29 14:38 | MM_ITS ---
Patient Name: LIZA GUEVARA MR#: [id number] : 1975 Exam Date: 05/29/2025 Ordering Doctor: DR FRANDY REDDY M.D. RADIOLOGY REPORT PROCEDURE: MM TOMOSYNTHESIS SCREENING BI COMPARISON: MAMMO NOEMÍ SCREEN, 09/09/2020. MAMMO NOEMÍ SCREEN, 09/02/2019. MAMMO NOEMÍ SCREEN, 04/28/2018. INDICATIONS: Screening Calculator Name NCI Breast Cancer Risk Assessment Tool 5 Year Breast Cancer Risk 0.90% Lifetime Breast Cancer Risk 8.00% Personal Breast Cancer No Personal Ovarian Cancer No Treatments None Family Cancers None LOCATION: [facility] BREAST COMPOSITION: The breasts are almost entirely fatty. FINDINGS: RIGHT BREAST: No significant suspicious finding. There is a similar focal asymmetry. Benign-appearing calcifications are present. LEFT BREAST: No significant suspicious finding. Benign-appearing calcifications are present. DIAGNOSTIC CATEGORY 2--BENIGN FINDING. NO CHANGE FROM COMPARISON. RECOMMENDATIONS: ROUTINE MAMMOGRAM AND CLINICAL EVALUATION IN 12 MONTHS. Dictated by: Jean Carlos Fernandez MD on 05/30/2025 at 15:16 Approved by: Jean Carlos Fernandez MD on 05/30/2025 at 15:32
== END 2025-05-29 14:36 | disposition home or self-care (01) ==
LOC: MAMMO 14:35
PROVIDERS: PCP Family Medicine; Visit Provider Family Medicine
DX: Z12.31 Encounter for screening mammogram for malignant neoplasm of breast (principal)
CPT/HCPCS: 77063; 77067